=== PATIENT | female | born 1985 | race Caucasian/White ===

== ENCOUNTER 2023-09-18 07:32 | Inpatient (IN) | payer OTHER ==
[2023-09-18] MEDS: ELECTROLYTE-148 SOLN 1,000 ML IV SCH (08:05)
[2023-09-18] MEDS ORDERED: BUPIVACAINE 0.75% IN DEXTROSE/PF 2ML AMPULE NR ONE (08:10)
[2023-09-18] MEDS ORDERED: OXYTOCIN 10 UNITS/ML VIAL ONE (08:10)
[2023-09-18] MEDS ORDERED: FENTANYL CITRATE/PF 50 MCG/ML VIAL ONE (08:10)
[2023-09-18] MEDS ORDERED: morphine SULFATE/PF 1 MG/2 ML (2cc Syringe - QUVA) ONE ×2 (08:10→09:38)
[2023-09-18] MEDS ORDERED: PHENYLEPHRINE HCL 10 MG/1 ML SINGLE DOSE VIAL ONE (08:20)
[2023-09-18] MEDS ORDERED: KETOROLAC TROMETHAMINE 30 MG/1 ML VIAL ONE (08:20)
[2023-09-18] MEDS ORDERED: ONDANSETRON 4 MG/2 ML VIAL ONE (08:20)
[2023-09-18] MEDS ORDERED: ceFAZolin SODIUM 1 GM VIAL ONE (08:20)
[2023-09-18] MEDS: CITRIC ACID/SODIUM CITRATE 30 ML UNIT-DOSE CUP PO ONE ×2 (08:30→11:39)
[2023-09-18] MEDS ORDERED: MIDAZOLAM HCL 2 MG/2 ML SINGLE DOSE VIAL ONE ×3 (08:38→09:30)
[2023-09-18 08:56] LABS: INR 0.89 (0.83-1.09); PROTHROMBIN TIME (PATIENT) 10.3 SEC (9.7-13.0)
[2023-09-18] MEDS: ceFAZolin SODIUM 1 GM VIAL IVPB ONE (08:56)
[2023-09-18 08:59] LABS: ACTIVATED PTT 26.1 SECONDS (25.2-36.5)
[2023-09-18 09:04] LABS: HEMATOCRIT 38.7 % (32.4-45.2); HEMOGLOBIN 13.2 GM/dL (10.7-15.3); MCH 30.7 pg (25.7-33.7); MCHC 34.2 g/dl (32.0-36.0); MEAN CELL VOLUME 89.8 fl (80-96); PLATELET COUNT 237 10^3/uL (134-434); RBC 4.31 M/mm3 (3.60-5.2); RDW 13.8 % (11.6-15.6); WHITE BLOOD COUNT 16.6 K/mm3 (4.0-10.0)
[2023-09-18 09:29] LABS: POTASSIUM 3.7 mmol/L (3.5-5.1)
[2023-09-18 09:30] LABS: CALCIUM 8.6 mg/dL (8.5-10.1)
[2023-09-18 09:31] LABS: BLOOD UREA NITROGEN 9.6 mg/dL (7-18)
[2023-09-18 09:34] LABS: CREATININE 0.5 mg/dL (0.55-1.3)
[2023-09-18 09:55] LABS: ANISOCYTOSIS 0; MACROCYTOSIS 0
[2023-09-18] MEDS ORDERED: METHYLERGONOVINE MALEATE 0.2 MG/1 ML AMP IM PRN (10:22)
[2023-09-18] MEDS ORDERED: ONDANSETRON 4 MG/2 ML VIAL IVPUSH PRN (10:45)
[2023-09-18 11:04] LABS: CORD BASE EXCESS -4.4 mmol/L (0-2); CORD HCO3 22.6 mmHg (20-29); CORD PCO2 48.7 mmHg (30-78); CORD pH 7.285 (7.14-7.44)
[2023-09-18 11:24] LABS: CORD BASE EXCESS -3.7 mmol/L (0-2); CORD HCO3 23.4 mmHg (20-29); CORD PCO2 49.9 mmHg (30-78); CORD pH 7.289 (7.14-7.44)
[2023-09-18 11:27] LABS: HIV INTERPRETATION NEGATIVE (NEGATIVE)
[2023-09-18] MEDS: OXYTOCIN 20 UNITS in 0.9% NS 20 UNIT/1,000 ML INFUS.BAG IV SCH (12:11)
[2023-09-18 12:17] VITALS: BMI 23.1
[2023-09-18 12:48] LABS: HEPATITIS B SURFACE AG MATERN NON-REACTIVE (NONREACTIVE)
[2023-09-18] MEDS: CEFAZOLIN SODIUM 2 GM in DEXTROSE 5%-WATER 100 ML IVPB SCH (15:19)
[2023-09-18] MEDS: IBUPROFEN 800 MG/8 ML IJ IVPB PRN (16:46)
[2023-09-18] MEDS ORDERED: oxyCODONE HCL 5 MG TABLET PO PRN (22:22)
[2023-09-19] MEDS: SIMETHICONE 80 MG TAB.CHEW (FP) PO PRN (05:28)
[2023-09-19] MEDS: ACETAMINOPHEN 325 MG TABLET (FP) PO PRN (09:29)
[2023-09-19] MEDS: ENOXAPARIN NA (PORCINE) 40 MG/0.4 ML DISP.SYRIN SQ SCH (09:30)
[2023-09-19] MEDS ORDERED: BISACODYL 10 MG SUPP.RECT RC PRN (10:22)
[2023-09-19 12:07] LABS: BASO % 0.1 % (0-2.0); HEMATOCRIT 34.4 % (32.4-45.2); HEMOGLOBIN 11.7 GM/dL (10.7-15.3); LYMPH % 5.2 % (8-40); MCH 31.2 pg (25.7-33.7); MEAN CELL VOLUME 91.8 fl (80-96); MEAN PLT VOLUME 7.6 fl (7.5-11.1); MONO % 5.7 % (3.8-10.2); PLATELET COUNT 231 10^3/uL (134-434); RBC 3.74 M/mm3 (3.60-5.2); RDW 14.4 % (11.6-15.6); WHITE BLOOD COUNT 15.3 K/mm3 (4.0-10.0)
[2023-09-19] MEDS: IBUPROFEN 600 MG TABLET (FP) PO PRN (13:03)
[2023-09-20] MEDS: oxyCODONE HCL 5 MG TABLET PO PRN (01:55)
[2023-09-20] MEDS ORDERED: ACETAMINOPHEN/CAFFEINE/BUTALBITAL 1 TAB PO PRN (09:31)
[2023-09-20] MEDS ORDERED: MISOPROSTOL 200 MCG TABLET ONE (17:52)
[2023-09-21 08:35] LABS: BASO % 0.6 % (0-2.0); EOS % 2.4 % (0-4.5); HEMOGLOBIN 10.8 GM/dL (10.7-15.3); LYMPH % 19.1 % (8-40); MCH 31.8 pg (25.7-33.7); MCHC 34.8 g/dl (32.0-36.0); MEAN CELL VOLUME 91.5 fl (80-96); MEAN PLT VOLUME 7.3 fl (7.5-11.1); MONO % 7.8 % (3.8-10.2); NEUT % 70.1 % (42.8-82.8); PLATELET COUNT 226 10^3/uL (134-434); RBC 3.38 M/mm3 (3.60-5.2); RDW 14.1 % (11.6-15.6); WHITE BLOOD COUNT 8.1 K/mm3 (4.0-10.0)
[2023-09-22 21:44] VITALS: BP 117/74; PULSE 86; RESP 17; TEMP 98.4
== END 2023-09-22 21:40 | disposition home or self-care (01) | DRG 540 ==
LOC: JDEL 07:32 → JLDR 07:50 → J3W 13:00
PROVIDERS: ADMIT Obstetrics & Gynecology; ATTEND Obstetrics & Gynecology
PROC: 10D00Z1 Extraction of Products of Conception, Low, Open Approach (ICD-10-PCS; principal; 2023-09-18 08:33)
DX: O32.8XX0 Maternal care for other malpresentation of fetus, not applicable or unspecified (principal); O69.81X0 Labor and delivery complicated by cord around neck, without compression, not applicable or unspecified; Z3A.38 38 weeks gestation of pregnancy; Z37.0 Single live birth; O90.89 Other complications of the puerperium, not elsewhere classified; R51.9 Headache, unspecified; I95.89 Other hypotension
CPT/HCPCS: 36415; 36600; 80048; 82803; 85025; 85610; 85730; 86780; 86803; 86850; 86900; 86901; 86922; 87340; 87389; 88307-TC; 94010; 94760